=== PATIENT | female | born 1990 | race Hispanic/Latino ===

== ENCOUNTER 2016-07-03 15:14 | Emergency (ER) | payer SELFPAY ==
[2016-07-03 16:16] VITALS: BP 113/68
[2016-07-03 17:14] LABS: Basophils % (Auto) 0.2 % (0.0-1.8); Eosinophils % (Auto) 0.8 % (0.0-4.3); Hemoglobin 10.5 gm/dl (10.1-14.3); Mean Corpuscular HGB Conc 33 % (30-34); Mean Corpuscular Hemoglobin 30 pg (28-32); Mean Corpuscular Volume 90 fl (79-97); Platelet Count 237 K/mm3 (140-440); Red Blood Count 3.55 M/mm3 (3.65-5.03); Red Cell Distribution Width 16.1 % (13.2-15.2)
--- NOTE | 2016-07-06 19:00 | ED Elopement Review ---
ED Pt Elopement review - Results review Lab results: Laboratory Tests 07/03/16 07/03/16 07/03/16 16:37 16:37 16:37 WBC 11.0 RBC 3.55 L Hgb 10.5 Hct 32.0 MCV 90 MCH 30 MCHC 33 RDW 16.1 H Plt Count 237 Lymph % (Auto) 11.4 L Stewart % (Auto) 5.9 Eos % (Auto) 0.8 Baso % (Auto) 0.2 Lymph # 1.2 Stewart # 0.7 Eos # 0.1 Baso # 0.0 Seg Neutrophils % 81.7 H Seg Neutrophils # 9.0 H HCG, Quant 63021 H Blood Type A NEGATIVE Antibody Screen Positive Antibody Identification Anti-D (Actively Aquired) - Call Back decision Pt Call Back Decision: Pt to F/U with PMD
== END 2016-07-03 19:59 | disposition left against medical advice (07) ==
LOC: ED 15:14
DX: O26.892 Other specified pregnancy related conditions, second trimester (principal); N89.8 Other specified noninflammatory disorders of vagina; Z3A.17 17 weeks gestation of pregnancy; Z53.21 Procedure and treatment not carried out due to patient leaving prior to being seen by health care provider
CPT/HCPCS: 36415; 84702; 85025; 86850; 86870; 86900; 86901

== ENCOUNTER 2018-06-20 20:30 | Outpatient (CLI) | payer MEDICAID ==
[2018-06-20 20:50] VITALS: BP 126/80
[2018-06-20] MEDS ORDERED: LACTATED RINGERS 1,000 ML IV ONE (21:20)
[2018-06-20] MEDS ORDERED: LACTATED RINGERS 1,000 ML ONE (22:11)
== END 2018-06-20 23:37 | disposition home or self-care (01) ==
LOC: TRG 20:30
PROVIDERS: ATTEND Obstetrics & Gynecology
DX: O62.9 Abnormality of forces of labor, unspecified (principal); O99.333 Smoking (tobacco) complicating pregnancy, third trimester; F17.200 Nicotine dependence, unspecified, uncomplicated; Z3A.38 38 weeks gestation of pregnancy
CPT/HCPCS: 59025; J7120; 96360

== ENCOUNTER 2018-06-27 12:57 | Outpatient (CLI) | payer MEDICAID ==
[2018-06-27 13:14] VITALS: BP 136/84
--- NOTE | 2018-06-27 16:42 | Ultrasound Report ---
FINAL REPORT EXAM: US OB BPP WO NON-STRESS HISTORY: DECREASED FM TECHNIQUE: Grayscale and color doppler ultrasound of the fetus was performed for biophysical profile . PRIORS: None. FINDINGS: A single, live intrauterine fetus is present in cephalic presentation with a heart rate of 121 beats per minute. Biophysical profile score of 8 out of 8 was noted. Scores of 2 out of 2 were given for tone, f etal breathing, movement and amniotic fluid volume. IMPRESSION: Normal biophysical profile.
--- NOTE | 2018-06-27 16:43 | Ultrasound Report ---
FINAL REPORT EXAM: US OB LIMITED HISTORY: HUGO TECHNIQUE: Limited OB ultrasound was performed. PRIORS: None. FINDINGS: A single live intrauterine fetus is present in cephalic presentation with a heart rate of 121 beats p er minute. Amniotic fluid index of 9.2 centimeters is noted. IMPRESSION: HUGO of 9.2 centimeters.
== END 2018-06-27 15:36 | disposition home or self-care (01) ==
LOC: TRG 12:57
PROVIDERS: ATTEND Obstetrics & Gynecology
DX: O36.8130 Decreased fetal movements, third trimester, not applicable or unspecified (principal); O99.513 Diseases of the respiratory system complicating pregnancy, third trimester; J45.909 Unspecified asthma, uncomplicated; Z3A.39 39 weeks gestation of pregnancy
CPT/HCPCS: 59025; 76815; 76819

== ENCOUNTER 2018-06-30 16:08 | Inpatient (IN) | payer MEDICAID ==
[2018-06-30] MEDS ORDERED: MINERAL OIL PO PRN (17:31)
[2018-06-30] MEDS ORDERED: BRETHINE IVP PRN (17:31)
[2018-06-30] MEDS ORDERED: XYLOCAINE 2% INFILTRATI ONE (17:31)
[2018-06-30] MEDS ORDERED: BRETHINE SUB-Q PRN (17:31)
[2018-06-30] MEDS ORDERED: PITOCin/NS 30 UNIT/500ML 30 UNITS/500 ML BAG IV SCH (18:00)
[2018-06-30 18:35] LABS: Hematocrit 37.8 % (30.3-42.9); Mean Corpuscular HGB Conc 35 % (30-34); Mean Corpuscular Volume 90 fl (79-97); Platelet Count 185 K/mm3 (140-440); Red Blood Count 4.19 M/mm3 (3.65-5.03); Red Cell Distribution Width 14.7 % (13.2-15.2)
[2018-06-30] MEDS: LACTATED RINGERS 1,000 ML IV SCH ×3 (21:01→23:58)
[2018-06-30] MEDS: STADOL IV PRN (21:10)
[2018-06-30] MEDS ORDERED: NARCAN 2 MG/2 ML IV PRN (22:45)
[2018-06-30] MEDS ORDERED: MARCAINE 0.25% INFILTRATI ONE (22:49)
[2018-06-30] MEDS ORDERED: fentaNYL-BUPIV 2 MCG/ML-0.125% 200 MCG/100 ML BAG EPIDURAL SCH (23:00)
--- NOTE | 2018-06-30 23:18 | Anesthesia Consultation ---
Anesthesia Consult and Med Hx - Airway Anesthetic Teeth Evaluation: Good ROM Head & Neck: Adequate Mental/Hyoid Distance: Adequate Mallampati Class: Class II Intubation Access Assessment: Good - Pulmonary Exam CTA: Yes - Cardiac Exam Cardiac Exam: RRR - Pre-Operative Health Status ASA Pre-Surgery Classification: ASA2 Proposed Anesthetic Plan: Epidural - Pulmonary Hx Smoking: Yes Hx Asthma: Yes (last used inhaler ) Hx Respiratory Symptoms: No SOB: No COPD: No Home Oxygen Therapy: No Hx Pneumonia: No Hx Sleep Apnea: No - Cardiovascular System Hx Hypertension: No Hx Coronary Artery Disease: No Hx Heart Attack/AMI: No Hx Angina: No Hx Percutaneous Transluminal Coronary Angioplasty (PTCA): No Hx Cardia Arrhythmia: No Hx Pacemaker: No Hx Internal Defibrillator: No Hx Valvular Heart Disease: No Hx Heart Murmur: No Hx Peripheral Vascular Disease: No - Central Nervous System Hx Neuromuscular Disorder: No Hx Seizures: No CVA: No Hx Back Pain: No Hx Psychiatric Problems: No - Gastrointestinal Hx Ulcer: No Hx Gastroesophageal Reflux Disease: Yes - Endocrine Hx Renal Disease: No Hx End Stage Renal Disease: No Hx Cirrhosis: No Hx Liver Disease: No Hx Insulin Dependent Diabetes: No Hx Non-Insulin Dependent Diabetes: No Hx Thyroid Disease: No Hx Hypothyroidism: Yes (takes Levothyroxine) Hx Hyperthyroidism: No - Hematic Hx Anemia: Yes Hx Sickle Cell Disease: No - Other Systems Hx Alcohol Use: No Hx Substance Use: No Hx Cancer: No Hx Obesity: No
--- NOTE | 2018-06-30 23:19 | Anesthesia Day of Surgery ---
Anesthesia Day of Surgery - Day of Surgery Patient Examined: Yes Patient H&P Reviewed: Yes Patient is NPO: Yes Beta Blockers: No Cardiac Clearance: No Pulmonary Clearance: No Morgan's Test: N/A
--- NOTE | 2018-07-01 03:09 | History and Physical Report ---
History of Present Illness Date of examination: 07/01/18 Date of admission: 06/30/18 17:31 Chief complaint: leakage of fluid History of present illness: 28y/o @ 40+3 weeks presents with spontaneous rupture of membranes. The patient is a transfer of care @ 36 weeks ega. course complicated by obesity, thyroid disorder, and asthma. Patient is GBS negative. Past History Past Medical History: asthma, thyroid disease Past Surgical History: D&C Social history: - Obstetrical History Expected Date of Delivery: 06/28/18 Actual Gestation: 40 Week(s) 3 Day(s) : 3 Para: 0 Hx # Term Pregnancies: 0 Number of Pregnancies: 0 Spontaneous Abortions: 2 Induced : 0 Number of Living Children: 0 Medications and Allergies Allergies Allergy/AdvReac Type Severity Reaction Status Date / Time No Known Allergies Allergy Verified 06/30/18 16:22 Home Medications Medication Instructions Recorded Confirmed Last Taken Type Ferrous Sulfate 1 tab PO DAILY 07/03/16 06/18/18 06/17/18 History Levothyroxine [Synthroid] 137 mcg PO QAM 07/03/16 06/18/18 06/17/18 History Vit No.130/Iron/Folic 1 tab PO DAILY 07/03/16 06/18/18 06/17/18 History [ Tablet] Active Meds: Active Medications Butorphanol Tartrate (Stadol) 2 mg IV Q2H PRN PRN Reason: Pain , Severe (7-10) Last Admin: 06/30/18 21:10 Dose: 2 mg Documented by: Ephedrine Sulfate (Ephedrine Sulfate) 10 mg IV Q2M PRN PRN Reason: Hypotension Ephedrine Sulfate (Ephedrine Sulfate) 10 mg IV Q2M PRN PRN Reason: Hypotension Lactated Ringer's (Lactated Ringers) 1,000 mls @ 125 mls/hr IV DIRECT PETER Last Admin: 06/30/18 23:58 Dose: 125 mls/hr Documented by: Oxytocin/Sodium Chloride (Pitocin/Ns 20 Unit/1000ml Drip) 20 units in 1,000 mls @ 125 mls/hr IV DIRECT PETER Oxytocin/Sodium Chloride (Pitocin/Ns 30 Unit/500ml) 30 units in 500 mls @ 4 mls/hr IV TITR PETER; Protocol Last Admin: 06/30/18 21:11 Dose: 4 milliunits/min, 4 mls/hr Documented by: Fentanyl/Bupivacaine/Sodium Chlor (Fentanyl-Bupiv 2 Mcg/Ml-0.125%) 200 mcg in 100 mls @ 12 mls/hr EPIDURAL TITR PETER; Protocol Last Admin: 06/30/18 23:56 Dose: 12 mls/hr Documented by: Mineral Oil (Mineral Oil) 30 ml PO QHS PRN PRN Reason: Constipation Naloxone HCl (Narcan 2 Mg/2 Ml) 0.2 mg IV Q5M PRN PRN Reason: Respiratory sedation Terbutaline Sulfate (Brethine) 0.25 mg SUB-Q ONCE PRN PRN Reason: Hyperstimulation/Hypertonicity Terbutaline Sulfate (Brethine) 0.25 mg IVP ONCE PRN PRN Reason: Hyperstimulation/Hypertonicity Review of Systems All systems: negative Genitourinary: leakage of fluid - Vital Signs Vital signs: Vital Signs Temp Pulse Resp BP 98.6 F 88 18 123/83 06/30/18 16:30 06/30/18 16:30 06/30/18 16:30 06/30/18 16:30 Temp Pulse Resp BP Pulse Ox 98.6 F 95 H 18 129/80 0 L 06/30/18 16:30 07/01/18 03:03 06/30/18 16:30 07/01/18 02:58 07/01/18 03:03 - Physical Exam Breasts: Positive: deferred Cardiovascular: Regular rate Lungs: Positive: Clear to auscultation Abdomen: Positive: normal appearance Results Result Diagrams: 06/30/18 17:59 Abnormal lab results 06/30/18 Range/Units 17:59 WBC 15.4 H (4.5-11.0) K/mm3 MCHC 35 H (30-34) % All other labs normal. Assessment and Plan - Patient Problems (1) Spontaneous rupture of amniotic membranes Current Visit: Yes Status: Acute Plan to address problem: admit to L&D
[2018-07-01] MEDS ORDERED: TUCKS PAD TP PRN (03:10)
[2018-07-01] MEDS ORDERED: BENADRYL PO PRN (03:10)
[2018-07-01] MEDS ORDERED: PHENERGAN PR PRN (03:10)
[2018-07-01] MEDS ORDERED: DULCOLAX PR PRN (03:10)
[2018-07-01] MEDS ORDERED: ZOFRAN IV PRN (03:10)
[2018-07-01] MEDS ORDERED: LANSINOH TP PRN (03:10)
[2018-07-01] MEDS ORDERED: PHENERGAN PO PRN (03:10)
[2018-07-01] MEDS ORDERED: TYLENOL PO PRN (03:10)
[2018-07-01] MEDS ORDERED: MILK OF MAGNESIA PO PRN (03:10)
[2018-07-01] MEDS ORDERED: SODIUM CHLORIDE FLUSH SYRINGE 10 ML IV NR (04:00)
[2018-07-01] MEDS: STADOL IV PRN (04:12)
[2018-07-01] MEDS ORDERED: MARCAINE 0.25% INFILTRATI ONE (04:58)
[2018-07-01] MEDS: PITOCin/NS 20 UNIT/1000ML DRIP 20 UNITS/1,000 ML BAG IV SCH ×2 (06:20→08:07)
[2018-07-01] MEDS ORDERED: METHERGINE IM ONE (06:25)
--- NOTE | 2018-07-01 06:35 | Procedure Note ---
OB Delivery Note - Delivery Date of Delivery: 07/01/18 Surgeon: JORDAN RIOS Estimated blood loss: other (400ml) - Vaginal Delivery presentation: vertex Delivery position: OA Intrapartum events: meconium Delivery augmentation: pitocin Delivery monitor: external FHT Route of delivery: Delivery placenta: spontaneous Delivery cord: nuchal cord, 3 umbilical vessels Episiotomy: none Delivery laceration: 2nd degree Delivery repair: vicryl Anesthesia: epidural Delivery comments: Patient progressed to C/C/ and pushed without ineffective movement of the fetus. The patient's epidural was replaced and the patient rested for a short period of time. The patient resumed pushing and delivered a liveborn female infant. After delivery of the head, thick meconium was noted. A tight nuchal cord was identified and surgically reduced. Peds called to the delivery. The was taken immediately to the warmer for resuscitation. The placenta delivered spontaneously intact with a 3VC. The patient sustained a midline 2nd degree laceration repaired in normal fashion with 2-0 vicryl. Apgars of 4/7 and weight of 8lbs 2oz. EBL 400ml - A at 1 minute: 4 (weight 8lbs 2oz) at 5 minutes: 7 Gender: Female
--- NOTE | 2018-07-01 10:13 | Post Anesthesia Evaluation ---
- Post Anesthesia Evaluation Patient Participated: Yes Airway Patent: Yes Stable Respiratory Function: Yes Nausea/Vomiting: No Temp > 96.8F: Yes Pain Manageable: Yes Adequeate Hydration: Yes Anesthesia Complications: No Block Receding Appropriately: Yes Patient on Ventilator: No
[2018-07-01 17:19] LABS: Hematocrit 33.3 % (30.3-42.9); Hemoglobin 11.4 gm/dl (10.1-14.3)
[2018-07-01] MEDS: IBUPROFEN PO SCH (18:40)
[2018-07-02] MEDS: IBUPROFEN PO SCH ×3 (05:37→12:16)
--- NOTE | 2018-07-02 07:25 | Progress Note ---
Assessment and Plan A/P PPD 1 s/p doing well course unremarkable rh neg-check for rhogam consider d/c home tomorrow Subjective - Subjective Date of service: 07/02/18 Principal diagnosis: s/p Patient reports: appetite normal, voiding normally, pain well controlled, flatus : in NICU Objective - Vital Signs Latest vital signs: Vital Signs Temp Pulse Resp BP BP Pulse Ox 07/01/18 16:25 98.0 F 88 20 124/76 99 07/01/18 12:01 98.8 F 81 18 127/88 07/01/18 09:00 98 F 82 145/82 98 07/01/18 07:30 71 129/83 Intake and Output 07/01/18 07/01/18 07/02/18 15:59 23:59 07:59 Intake Total 582.917 480 240 Output Total 1500 150 400 Balance -917.083 330 -160 Intake: IV 222.917 PITOCin/NS 20 UNIT/1000ML 222.917 DRIP 20 units In 1,000 ml @ 125 mls/hr IV DIRECT PETER Rx#:[id number] Oral 360 480 240 Output: Urine 1500 150 400 Indwelling Catheter 1500 Void 150 400 Other: Total, Intake Amount 360 480 240 Total, Output Amount 1500 150 400 - Exam Breasts: Present: normal Cardiovascular: Present: Regular rate, Normal S1 Lungs: Present: Clear to auscultation, Normal air movement Abdomen: Present: normal appearance, soft, normal bowel sounds. Absent: distention, tenderness, guarding Uterus: Present: normal, firm, fundal height below umbilicus. Absent: bogginess, tenderness Extremities: Present: normal Deep Tendon Reflex Grade: Normal +2
[2018-07-02] MEDS: NORCO 5/325 PO PRN (22:17)
[2018-07-03] MEDS: IBUPROFEN PO SCH ×4 (00:19→18:55)
[2018-07-03] MEDS ORDERED: DERMOPLAST TP PRN (05:20)
--- NOTE | 2018-07-03 08:50 | Discharge Summary ---
Providers - Providers Date of Admission: 06/30/18 17:31 Date of discharge: 07/03/18 Attending physician: HARESH PAYTON MD Primary care physician: HARESH PAYTON MD Hospitalization Reason for admission: active labor Delivery: Discharge diagnosis: IUP at term delivered Hospital course: Patient admitted in labor. Had a complicated by meconium stained fluid. Routine Condition at discharge: Good Disposition: DC-01 TO HOME OR SELFCARE - Discharge Diagnoses (1) Spontaneous rupture of amniotic membranes Status: Acute Plan - Discharge Medications Prescriptions: Ibuprofen [Motrin] 600 mg PO Q8H PRN #30 tablet PRN Reason: Pain oxyCODONE /ACETAMINOPHEN [Percocet 5/325] 1 tab PO Q6HR PRN #30 tablet PRN Reason: Pain - Provider Discharge Summary Activity: no sex for 6 weeks, no heavy lifting 4 weeks, no strenuous exercise Diet: routine Instructions: routine Additional instructions: [] Smoking cessation referral if applicable(refer to patient education folder for contact #) [] Refer to [facility] Booklet Call your doctor immediately for: * Fever > 100.5 * Heavy vaginal bleeding ( >1 pad per hour) * Severe persistent headache * Shortness of breath * Reddened, hot, painful area to leg or breast * schedule followup in 4 weeks - Follow up plan
[2018-07-03] MEDS: NORCO 5/325 PO PRN ×2 (13:16→18:53)
[2018-07-03 18:08] VITALS: BP 136/84
== END 2018-07-03 20:36 | disposition home or self-care (01) | DRG 775 ==
LOC: TRG 16:08 → LD 17:31 → OB 07-01 08:14
PROVIDERS: ADMIT Obstetrics & Gynecology; ATTEND Obstetrics & Gynecology
PROC: 10E0XZZ Delivery of Products of Conception, External Approach (ICD-10-PCS; principal; 2018-07-01)
PROC: 0KQM0ZZ Repair Perineum Muscle, Open Approach (ICD-10-PCS; 2018-07-01)
PROC: 3E0R3BZ Introduction of Anesthetic Agent into Spinal Canal, Percutaneous Approach (ICD-10-PCS; 2018-07-01)
PROC: 00HU33Z Insertion of Infusion Device into Spinal Canal, Percutaneous Approach (ICD-10-PCS; 2018-07-01)
DX: O77.0 Labor and delivery complicated by meconium in amniotic fluid (principal); O69.1XX0 Labor and delivery complicated by cord around neck, with compression, not applicable or unspecified; Z3A.40 40 weeks gestation of pregnancy; Z37.0 Single live birth; J45.909 Unspecified asthma, uncomplicated; O99.284 Endocrine, nutritional and metabolic diseases complicating childbirth; O70.1 Second degree perineal laceration during delivery; K21.9 Gastro-esophageal reflux disease without esophagitis; E03.9 Hypothyroidism, unspecified; O99.52 Diseases of the respiratory system complicating childbirth; O99.62 Diseases of the digestive system complicating childbirth; O99.334 Smoking (tobacco) complicating childbirth; F17.200 Nicotine dependence, unspecified, uncomplicated; Z29.13 Encounter for prophylactic Rho(D) immune globulin
CPT/HCPCS: 36415; 59025; 76815; 76819; 85014; 85018; 85027; 85461; 86592; 86850; 86900; 86901; G0378; A6250; J0595; J2210; J2590; J2790; J7120

== ENCOUNTER 2020-04-14 07:58 | Outpatient (CLI) | payer MEDICAID ==
[2020-04-14] MEDS ORDERED: LACTATED RINGERS 500 ML IV ONE (10:42)
== END 2020-04-14 10:00 | disposition home or self-care (01) ==
LOC: LAB 07:58 → APU 09:29 → LAB 10:00
PROVIDERS: ATTEND Obstetrics & Gynecology
DX: O26.893 Other specified pregnancy related conditions, third trimester (principal); Z67.11 Type A blood, Rh negative; Z87.891 Personal history of nicotine dependence; Z3A.29 29 weeks gestation of pregnancy
CPT/HCPCS: 86850; 86900; 86901; 96372; J2790